=== PATIENT | female | born 1945 | race Caucasian/White ===

== ENCOUNTER → 2016-02-29 | Outpatient (CLI) | payer MEDICARE, OTHER ==
[~2016-02-29] MED LIST: LEVOTHYROXIN PO
[2016-02-29 10:42] LABS: BILIRUBIN, INDIRECT 0.21 mg/dL (0-0.9)
== END ==
LOC: LAB 09:01
PROVIDERS: Internal Medicine
DX: I25.10 Atherosclerotic heart disease of native coronary artery without angina pectoris (principal); I10 Essential (primary) hypertension; E78.5 Hyperlipidemia, unspecified; E03.9 Hypothyroidism, unspecified; D64.9 Anemia, unspecified; I21.3 ST elevation (STEMI) myocardial infarction of unspecified site

== ENCOUNTER → 2016-06-07 | Outpatient (CLI) | payer MEDICARE, OTHER ==
[~2016-06-07] MED LIST changes: +ASPIRIN ADULT L81 M3 PO; +ATORVASTATIN CA40 MG PO; +CARVEDILOL 1212.5 MG PO; +EFFIENT10 M2 PO; +LISINOPRIL5 MG NG; +OMEPRAZOLE20 MG PO; +RANITIDINE HCL150 M1 PO
== END ==
LOC: LAB 18:05
DX: E03.9 Hypothyroidism, unspecified (principal)

== ENCOUNTER → 2016-12-13 | Outpatient (CLI) | payer MEDICARE, OTHER ==
[2016-12-13 19:07] LABS: HEMOGLOBIN 12.2 g/dL (12.2-16.2); LYMPH % 34.6 % (10-50.0)
[2016-12-13 20:25] LABS: BUN 19 mg/dL (7-18); GFR (ESTIMATED) 54 ML/MIN (59-)
[2016-12-15 09:37] LABS: Folate (Folic Acid) >20.0 ng/mL (>3.0); Iron 65 ug/dL (27-139); Iron Saturation 22 % (15-55); UIBC 224 ug/dL (118-369); Vitamin B12 410 pg/mL (211-946)
== END ==
LOC: LAB 18:09
PROVIDERS: Physician Assistant
DX: L60.3 Nail dystrophy (principal); I10 Essential (primary) hypertension; E03.9 Hypothyroidism, unspecified; I25.10 Atherosclerotic heart disease of native coronary artery without angina pectoris